=== PATIENT | female | born 1990 | race Caucasian/White ===

== ENCOUNTER 2020-04-01 12:12 | Emergency (ER) | payer OTHER, SELFPAY ==
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
[2020-04-01 12:18] VITALS: BP 137/83; PULSE 106; RESP 16; TEMP 37; O2SAT 100
[2020-04-01] MEDS: ACETAMINOPHEN 500 MG TABLET 1000 MG PO (13:50)
[2020-04-01] MEDS: ONDANSETRON HCL ODT 4 MG TABLET PO (13:50)
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
== END 2020-04-01 15:28 | disposition home or self-care (01) ==
PROVIDERS: Emergency Provider General Practice; PCP Family Medicine
DX: S01.01XA Laceration without foreign body of scalp, initial encounter (principal); S16.1XXA Strain of muscle, fascia and tendon at neck level, initial encounter; W22.8XXA Striking against or struck by other objects, initial encounter; Y93.B2 Activity, push-ups, pull-ups, sit-ups
CPT/HCPCS: 12001; 70450; 72125; 99284; A9270

== ENCOUNTER 2020-10-12 13:37 | Emergency (ER) | payer OTHER, SELFPAY ==
[2020-10-12 13:37] VITALS: BP 124/71; PULSE 102; RESP 18; TEMP 36.4; O2SAT 100
--- NOTE | 2020-10-12 13:48 | ECG_ITS ---
Measurements Intervals [place] Rate: 104 P: 79 WV: 125 QRS: 115 QRSD: 97 T: 49 QT: 345 QTc: 455 Interpretive Statements SINUS TACHYCARDIA INCOMPLETE RIGHT BUNDLE BRANCH BLOCK BORDERLINE ST-T WAVE ABNORMALITY- INF/LAT LEADS BASELINE ARTIFACT- I, II, III, AVR, AVL, AVF, V2-V3 BORDERLINE ECG Electronically Signed On 10-12-2020 15:06:03 MEDICINE ASSISTANT by Brice Valdez D.O.
--- NOTE | 2020-10-12 14:50 | ED.ALLEREA ---
HPI - Allergic Reaction General Chief complaint: Allergic Reaction Stated complaint: allergic reation Source: patient and EMS Mode of arrival: EMS History of Present Illness HPI narrative: Patient is 30 years old white female had first dose of MoDERNA vaccine at 1230 noon today immediately followed by feeling anxious and shortness of breath. Patient received epinephrine and 50 mg of Benadryl prior to arrival to the emergency room by ambulance. Currently patient feeling foggy. Patient denies any fever, chills, nausea, vomiting, chest pain, headache, coughing, palpitation, redness or swelling at the site of injection. Related Data Home Medications Medication Instructions Recorded Confirmed albuterol sulfate [Ventolin HFA] INHALATION 04/01/20 09/21/20 Allergies Allergy/AdvReac Type Severity Reaction Status Date / Time adhesive tape Allergy Unknown Rash Verified 10/12/20 13:43 Review of Systems Review of Systems: Narrative: CONSTITUTIONAL: Denies fever, chills, or sweats. EYES: Denies visual changes, redness, or discharge. ENT: Denies rhinorrhea, congestion, sore throat, or otalgia. CARDIOVASCULAR: Denies chest pain, palpitations, or edema. RESPIRATORY: Denies cough or dyspnea. GASTROINTESTINAL: Denies abdominal pain, nausea, vomiting, or diarrhea. GENITOURINARY: Denies dysuria or hematuria. SKIN: Denies rash or itching. MUSCULOSKELETAL: Denies back pain, joint pain, or myalgia. NEUROLOGIC: Denies headache, numbness, or weakness. PSYCHIATRIC: Denies anxiety or depression. PMFSH Family History Family History Father Family history of hypercholesterolemia Family history of lymphoma Family history of throat cancer Social History Social History Smoking status: Never smoker Alcohol intake: current Gender identity (if verbalized by the patient): Female Exam Narrative: Exam Narrative: General appearance: Well-developed, well-nourished, at the bedside Skin: Normal color Head: Normocephalic, nontraumatic Eyes: Clear conjunctiva ENT: Oropharynx normal, ears normal, nose normal Neck: Supple, nontender Chest and respiratory: Airway patent, no respiratory distress, no accessory muscle use Heart: Regular rate/rhythm Abdomen: Soft, nontender, no organomegaly, quiet bowel sounds Vascular: Normal peripheral pulses, normal capillary refill. 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 Reevaluation(s) Date: 10/12/20 Time: 14:53 Reevaluation #2: Patient laying down comfortable in bed, smiling, denying any symptoms and ready to go home. Date: 10/12/20 Time: 16:35 Vital Signs Vital signs: Vital Signs Temperature 36.4 C 10/12/20 13:37 Pulse Rate 102 H 10/12/20 13:37 Respiratory Rate 18 10/12/20 13:37 Blood Pressure 124/71 10/12/20 13:37 Pulse Oximetry 100 10/12/20 13:37 Temperature 36.4 C 10/12/20 13:37 Pulse Rate 102 H 10/12/20 13:37 Respiratory Rate 18 10/12/20 13:37 Blood Pressure 124/71 10/12/20 13:37 Pulse Oximetry 100 10/12/20 13:37 MDM - Allergic Reaction MDM Narrative Medical decision making narrative: Vaccine reaction s/p first dose of modernA vaccine. Vital signs, physical examination within normal limits. Patient will be observed for 1 hour then will be released Differential Diagnosis Differential diagnosis: Likely allergic reaction and adverse reaction to drug Critical Care Time Critical Ca
[2020-10-12 17:01] VITALS: BP 106/68; PULSE 90; RESP 18; O2SAT 98
== END 2020-10-12 17:02 | disposition home or self-care (01) ==
PROVIDERS: Emergency Provider Emergency Medicine; PCP Family Medicine
DX: R06.02 Shortness of breath (principal); F41.9 Anxiety disorder, unspecified; T50.B95A Adverse effect of other viral vaccines, initial encounter
CPT/HCPCS: 93005; 99283

== ENCOUNTER → 2022-04-19 07:01 | Outpatient (CLI) | payer OTHER, SELFPAY ==
--- NOTE | ~2022-04-19 | XR_ITS ---
EXAMINATION: XR abdomen/kub 1V INDICATION: Unspecified abdominal pain TECHNIQUE: Supine views of the abdomen were obtained on 2 radiographs. COMPARISON: None FINDINGS: The bowel gas pattern is normal. There are no dilated loops of bowel. The visualized lung b ases are clear. The osseous structures are unremarkable. IMPRESSION: 1. No radiographic correlate for the patient's symptoms. Reviewed, dictated and finalized at location [facility].
== END ==
PROVIDERS: PCP Family Medicine; Visit Provider Physician Assistant
DX: R10.9 Unspecified abdominal pain (principal); Z87.442 Personal history of urinary calculi
CPT/HCPCS: 74018

== ENCOUNTER 2023-11-10 08:54 | Outpatient (CLI) | payer OTHER, SELFPAY ==
[2023-11-10 19:37] LABS: Basophils Percent Auto 0.5 % (0.2-1.2); Eosinophils Absolute Auto 0.1 K/mm3 (0-0.3); Eosinophils Percent Auto 1.6 % (0-4.4); Hematocrit 43.6 % (37.0-47.0); Hemoglobin 13.7 g/dL (12.0-15.0); Immature Granulocyte Absolute 0.01 K/mm3 (0.00-0.031); Immature Granulocyte Percent A 0.3 % (0-0.5); Lymphocytes Absolute Auto 1.23 K/mm3 (0.9-3.2); Lymphocytes Percent Auto 32.5 % (18.3-44.2); Mean Corpuscular HGB Conc 31.4 g/dl (32-36); Mean Corpuscular Hemoglobin 29.9 pg (26-34); Mean Corpuscular Volume 95.2 fl (80-100); Mean Platelet Volume 10.7 fl (7.4-10.4); Monocytes Absolute Auto 0.4 K/mm3 (0.1-0.6); Monocytes Percent Auto 9.2 % (2.6-8.5); Neutrophils Absolute Auto 2.1 K/mm3 (1.3-6.7); Neutrophils Percent Auto 55.9 % (45.5-73.1); Platelet Count Result 201 k/mm3 (150-375); Red Blood Count 4.58 M/mm3 (4.2-5.4); Red Cell Distribution Width 12.9 % (11.5-14.5); White Blood Count 3.8 K/mm3 (4.5-10.0)
[2023-11-10 19:48] LABS: Anion Gap 4 mmol/L (8-16); Blood Urea Nitrogen 11 mg/dL (7-17); Calcium 9.2 mg/dL (8.4-10.2); Carbon Dioxide 28 mmol/L (22-30); Chloride 106 mmol/L (98-107); Cholesterol 138 mg/dL (0-200); Estimated Glomerular Filt Rate > 60; Glucose 78 mg/dL (65-110); HDL Direct 62 mg/dL; Potassium 4.5 mmol/L (3.4-5.0); Sodium 138 mmol/L (137-145); Triglycerides 107 mg/dL (<150)
[2023-11-10 19:58] LABS: LDL Cholesterol Direct 68 mg/dL
== END 2023-11-10 08:55 | disposition home or self-care (01) ==
LOC: ANHGOSHLAB 08:55
PROVIDERS: PCP Family Medicine; Visit Provider Nurse Practitioner Family
DX: Z00.00 Encounter for general adult medical examination without abnormal findings (principal); F41.9 Anxiety disorder, unspecified
CPT/HCPCS: 36415; 80048; 80061; 84443; 85025